=== PATIENT | female | born 1990 | race Caucasian/White ===

== ENCOUNTER → 2017-09-02 | Outpatient (REF) | payer OTHER ==
[2017-09-02 22:27] LABS: INFLUENZA A AMPLIFICATION POSITIVE (NEGATIVE); INFLUENZA B AMPLIFICATION NEGATIVE (NEGATIVE)
== END ==
LOC: M LAB REF 09:21
DX: J11.1 Influenza due to unidentified influenza virus with other respiratory manifestations (principal)
CPT/HCPCS: 87502

== ENCOUNTER 2020-04-28 12:11 | Inpatient (IN) | payer OTHER ==
[2020-04-28] VITALS (38 sets, daily range): BP systolic 83–120; BP diastolic 50–84
[~2020-04-28] VITALS: Ht 167.6 cm; Wt 76.2 kg
[2020-04-28] MEDS ORDERED: PRENTAB9 PO (12:39)
--- NOTE | 2020-04-28 13:07 | HPEPDOC ---
Obstetrical History & Physical General Date of Admission Apr 28, 2020 at 12:53 History of Present Illness 30yo at 39+1wks presenting for c/o gush of clear fluid at 1000 today. She reports continued leaking and small gushes since. She reports spotting VB. She endorses irregular ctx's she rates are 5/10 in pain severity. Denies DFM. Chief Complaint: LOF, term Information Provided By: Patient Age: 30 : 1 Care Care: Good Care Dating Final EDC: May 04, 2020 Final EDC for Daily Update: May 04, 2020 Final EDC by: LMP (c/w 1st trimester U/S at 10wks on [id number]) Antepartum Course Diagnos(e)s Uncomplicated Height (inches): 65 Pre- weight (lbs.): 133 Admission Weight (lbs.): 171 Change in Weight (lbs.): 38 Past Medical History Past Obstetrical History : Past Obstetrical History: [employer]img[employer] History: No pertinent history Past Medical History Medical History Denies Surgical History: Other (Orthopedic surgery with tib/fib repair 2010 with screw removal 2011) Family History Significant Family History: Heart disease, Other (thyroid disease) Social History Marital Status: Family situation: Spouse/partner home Psychosocial History: No pertinent psych hx * Smoker: non-smoker Alcohol: Denies Drugs: denies Abuse Violence Screening Have you been hit/kicked/slapp: No Have you been sexually assault: No Imunizations Tdap status: current ([id number]) Influenza Status: current () Allergies Coded Allergies: amoxicillin (Verified Allergy, Intermediate, 04/28/20) clavulanic acid (Verified Allergy, Intermediate, 04/28/20) Medications Scheduled No.137/Iron/Folic Acd ( Vitamin Tablet) 1 Each Tablet, 1 TAB PO DAILY Physical Examination Physical Examination GENERAL: Alert and oriented times three. ABDOMEN: Gravid and non-tender to touch. FETUS: Is vertex (VTX) by sterile vaginal examination (SVE), fetus is vertex (VTX) by Avni. CARDS: well-perfused RESP: no exaggerated respiratory effort appreciated, no cough EXTREMITIES: No edema. : NEFG, +pooling of clear fluid noted, SVE 2/80/-2 Laboratory Data Urine Culture: No Growth Pertinent Laboratoy Data Blood Type: O+ RBC Antibody Screen: Negative HIV: Negative Hepatitis B: Negative Rapid Plasma Reagin: Nonreactive Rubella: Immune Varicella: Nonreactive Chlamydia/Gonorrhea: Negative Group B Streptococcus: Negative ([id number]) Quad Screen Test: Declined Cystic Fibrosis: Negative Anatomy Ultrasound Ultrasound Date: Dec 18, 2019 Placenta Location: Anterior Normal Anatomy: Yes Placenta Previa: No Vaginal Examination Dilation: 2cm Effacement: 80% Station: -2 Cervical Consistency: Soft Cervical Position: Posterior Presentation: Cephalic presentation Assessment Heart Rate (FHR): 135 Variability: Moderate Accelerations: Positive Decelerations: None Tocometer Contractions: Yes Frequency: irregular Multi-drug resistant Organism: No history of MDRO Assessment/Plan Assessment 30yo at 39+1wks presenting for PROM of clear fluid. SVE 2/80/-2. GBS neg. EFW 3400g. Plan Admit and orient. Lap Runner and consent. Diet: clears as tolerated. Group B Streptococcus (GBS) negative. Labs and intravenous (IV) per unit protocol. Counseled on Pitocin and induction of labor (IOL). Lactated Ringers (LR): at 125 mL/hr. Patient may have epidural if desires Anticipate normal spontaneous delivery (). C-S as appropriate. ALBAN PIEDRA DO Apr 28, 2020 13:07
[2020-04-28 13:39] LABS: HEMATOCRIT 40.4 % (36.0-47.0); HEMOGLOBIN 13.3 g/dl (12.0-15.5); MEAN CORPUSCULAR HEMOGLOBIN 27.7 pg (27.0-33.0); MEAN CORPUSCULAR HGB CONC 32.9 g/dl (32.0-36.5); MEAN CORPUSCULAR VOLUME 84.2 fl (80.0-96.0); PLATELET COUNT, AUTOMATED 238 10^3/uL (150-450); WHITE BLOOD COUNT 11.7 10^3/uL (4.0-10.0)
[2020-04-28] MEDS ORDERED: FENTANYL 2MCG/ML ROPIVACAINE 0.2% IN 0.9% NACL 100ML IVBAG As Ordered ONE (15:55)
[2020-04-28] MEDS ORDERED: NALOXONE INJ 0.4MG/1ML VIAL (J2310 PER 1MG) IV PRN (17:00)
[2020-04-28] MEDS ORDERED: diphenhydrAMINE 50MG/ML VIAL (J1200) IV PRN (17:00)
[2020-04-28] MEDS ORDERED: EPIDURAL COMMENT XX SCH (17:00)
[2020-04-28] MEDS ORDERED: REFRIGERATOR IV KEYS XX PRN (17:00)
[2020-04-28] MEDS ORDERED: ONDANSETRON 4MG/2ML VIAL IV PRN (17:00)
[2020-04-28] MEDS ORDERED: FENTANYL/ROPIVACAINE/NACL BAG 100 ML EPIDURAL SCH (17:00)
[2020-04-28] MEDS ORDERED: EPIDURAL/PCA KEYS XX PRN (17:00)
[2020-04-28] MEDS ORDERED: LACTATED RINGER'S 1000 ML IV PRN (17:00)
[2020-04-28] MEDS ORDERED: ePHEDrine SULFATE 25 MG/5 ML(5MG/ML) SYRINGE IV PRN (17:00)
--- NOTE | 2020-04-28 20:44 | IPNPDOC ---
Obstetrical Progress Note Date of Service Apr 28, 2020 Subjective Patient endorsing nausea and feeling pelvic pressure. Objective Vital Signs Date Time Temp Pulse Resp B/P (MAP) Pulse Ox O2 Delivery O2 Flow Rate FiO2 04/28/20 18:34 58 105/57 (73) 04/28/20 18:14 97.7 16 Assessment Heart Rate (FHR): 125 Variability: Moderate Accelerations: Positive Decelerations: None Heart Rate Tracing: Category I Tocometer Contractions: Yes Frequency: every 1-3 min. Sterile Vaginal Examination Dilation: complete Effacement (%): 100% Station: +2 Cervical Consistency: Soft Cervical Position: Anterior Postion/Presentation: Cephalic presentation Assessment and Plan Status: Reassuring Group B Streptococcus: Negative Anticipate: Vaginal Delivery Additional Comments Patient noted to have bloody show. SVE c/c/+2. FHRT cat I. Patient to start pushing with RN at this time for expectant . ALBAN PIEDRA DO Apr 28, 2020 20:44
--- NOTE | 2020-04-28 22:32 | IPNPDOC ---
Obstetrical Progress Note Date of Service Apr 28, 2020 Objective Vital Signs Date Time Temp Pulse Resp B/P (MAP) Pulse Ox O2 Delivery O2 Flow Rate FiO2 04/28/20 18:34 58 105/57 (73) 04/28/20 18:14 97.7 16 Assessment Heart Rate (FHR): 150 Variability: Increased Accelerations: Positive Decelerations: Early Heart Rate Tracing: Category I Tocometer Contractions: Yes Frequency: every 1-3 min. Sterile Vaginal Examination Dilation: complete Effacement (%): 100% Station: +3 (with pushing) Cervical Consistency: Soft Cervical Position: Anterior Postion/Presentation: Cephalic presentation Assessment and Plan Status: Reassuring Group B Streptococcus: Negative Anticipate: Vaginal Delivery Additional Comments Patient has been pushing for 1.5hours and has made some descent with pushing to +3 station. position noted to be OP on SVE. Patient pushing well with ctx's and making descent with pushing. Patient counseled about potential need for operative delivery but encouraged to continue pushing as she desires at this time. FHRT cat I. Safe to proceed. ALBAN PIEDRA DO Apr 28, 2020 22:32
[2020-04-29] VITALS (14 sets, daily range): BP systolic 93–126; BP diastolic 51–69
[2020-04-29 01:14] LABS: CORD GAS ABE A -6.6; CORD GAS HCO3 A 20.8 MEQ/L; CORD GAS HCO3 V 21.2 MEQ/L; CORD GAS O2 SAT A 70.7 %; CORD GAS O2 SAT V 55.1 %; CORD GAS PCO2 V 47.7 mmHg; CORD GAS PH A 7.254 UNITS; CORD GAS PH V 7.265 UNITS; CORD GAS PO2 A 29.9 mmHg; CORD GAS PO2 V 24.5 mmHg; CORD GAS SBC A 18.5 MEQ/L; CORD GAS SBC V 18.6 MEQ/L; CORD GAS TCO2 A 22.2 MEQ/L; CORD GAS TCO2 V 22.6 MEQ/L
--- NOTE | 2020-04-29 06:30 | DNPDOC ---
[facility] Delivery Note Delivery Note DATE OF DELIVERY: 04/29/2020 PREDELIVERY DIAGNOSIS: 39+2/7 weeks' gestation and labor. POST DELIVERY DIAGNOSIS: Delivered. PROCEDURE: Vacuum-assisted vaginal delivery VIRTUAL CUSTOMER ASSISTANT: Dr. Alban Piedra ANESTHESIA: Epidural, lidocaine 1% without epinephrine for repair ESTIMATED BLOOD LOSS: 250 mL. FINDINGS: 7 pound 7 ounce 3360g male , Score 8/8, nuchal cord times x2 with bandolier cord noted. Terminal meconium appreciated. Infant noted to have small area of skin erosion on caput while patient was pushing. DELIVERY SUMMARY: Patient found to be c/c/+3 and pushing with good maternal effort. Patient had been offered operative vaginal delivery at 2 and 3 hours of pushing but dec lined. After 4 hours of pushing, patient counseled on recommendation for operative vaginal delivery as head was noted to have 2cm area of swelling with skin layer on head from the length of pushing, length of time that patient had been pushing for concern of maternal exhaustion, and significant vaginal edema appreciated. Patient endorsed maternal exhaustion and was amenable to operative vaginal delivery. Chavez catheter removed. position appreciated to be HOA. Kiwi vacuum applied to flexion point with care taken to ensure maternal tissue was not trapped in the vacuum. With contraction, suction applied and over 2 pushes, delivery of head with no pop-offs. Vacuum suction removed and kiwi removed from delivery field. Pres entation was HOA with restitution to LOT with right shoulder anterior position. Anterior shoulder delivered without difficulty followed by body. Nuchal cord x2 and bandolier cord x1 appreciated that were reduced on delivery field. placed on maternal abdomen to be dried and stimulated. Pitocin IV bolus initiated. Ice was placed in the vagina due to significant edema noted. After 5 minutes of delayed cord clamping, 3 vessel cord clamped x2 and cut by FOB. Cord gas sample obtained. Cord blood sample obtained. Inspection of vagina revealed left labia laceration that was made hemostatic using 4-0 vicryl in running, non- locking fashion under local anesthesia as epidural was not effective for repair. Perineum found to be intact. Third stage was spontaneous with intact placenta noted. Fundal massage revealed firm uterine tone and hemostasis. Additional ice was placed into the vagina for significant edema at the end of repair. EBL 250ml. Mother stable upon my leaving the room. Infant taken to NICU for observation per operative delivery SOP. ALBAN PIEDRA DO Apr 29, 2020 01:29
--- NOTE | 2020-04-30 04:19 | IPNPDOC ---
Progress Note Date of Service: Apr 30, 2020 Day#: 1 Progress Note SUBJECT: 30yo s/p VAVD doing well day # 1. She has been ambulat ing, voiding spontaneously without issue and tolerating regular diet. Breast feeding well. Reports lochia is decreasing. Reports pain controlled. OBJECTIVE: VITAL SIGNS: Within normal limits, afebrile. Alert and oriented times three. RESP: no exaggerated respiratory effort appreciated, no cough CARDS: well-perfused Abdomen: Fundus firm at U-2. Soft, NTTP. : deferred as patient during evaluation ASSESSMENT: 23yo s/p VAVD doing well day # 1. Normotensive, afebrile, hemodynamically stable with no evidence of infection. PLAN: 1. Discharge to home tomorrow 2. Tylenol and Motrin for pain PRN. 3. Encourage breast feeding and ambulation. 4. Encourage regular diet and PO hydration as tolerated 5. Monitor lochia and vitals q4h and PRN VS, I&O, 24H, Fishbone Vital Signs/I&O Vital Signs Date Time Temp Pulse Resp B/P (MAP) Pulse Ox O2 Delivery O2 Flow Rate FiO2 04/29/20 18:00 98.9 55 18 110/60 (77) 04/29/20 06:04 97 Room Air ALBAN PIEDRA DO Apr 30, 2020 04:18
[2020-04-30 05:33] VITALS: BP 110/64
[2020-04-30 18:00] VITALS: BP_SYST 104; BP_SYST 111; BP_DIAS 61; BP_DIAS 65
[2020-05-01 05:52] VITALS: BP 101/69
[2020-05-01] MEDS ORDERED: IBUP80TA PO (06:38)
[2020-05-01] MEDS ORDERED: DIBU10OI TOP (06:38)
[2020-05-01] MEDS ORDERED: DOCU100C16 PO (06:38)
--- NOTE | 2020-05-01 11:59 | DSES ---
DATE OF ADMISSION: 04/28/2020 DATE OF DISCHARGE: This lady is a 30-year-old 1 now para 1 admitted at 39 and two weeks of gestation, active labor; had spontaneous vaginal delivery with epidural of a male , 7 pounds 7 ounces (3360 grams), Apgars of 8 and 8 at one and five minutes respectively. Arterial pH was 7.25, base excess -6.6, venous pH 7.26, base excess -6.0. The patient had a left labial laceration which was repaired. On her second day, we discussed phlebitis, cystitis, mastitis, endometritis, and cellulitis, diet, exercise, pain management, perineal, breast, and wound care. The rest of the examination was unremarkable. Normocephalic and atraumatic. Neck: Full range of motion. Pupils equal and reactive to light. Distal pulses symmetrical. No evidence of DVT, PE or superficial phlebitis. Chest was clear bilaterally at the bases; no wheezes or rhonchi. No CVA tenderness. Abdomen soft. Four quadrant bowel sounds are noted. Uterus two below; lochia is moderate. Perineum was healing. No rashes, lesions, pruritus. No arthralgias, myalgias. No complaint of joint pain. No complaint of cough, wheeze, shortness of breath or dyspnea on exertion. No nausea, vomiting, diarrhea or constipation. No urgency or frequency. On discharge, the patient's hemoglobin was 13.3, hematocrit 40.4 and platelets are 238. Her vital signs on discharge: Her blood pressure 101/69, respirations 18, pulse is 58and temperature is 98.9. Medications were dispensed at [place]. She will have a six-week checkup at [facility]. All questions were answered; twenty-minute discussion. The patient was discharged improved. KIRT
== END 2020-05-01 11:50 | disposition home or self-care (01) | DRG 807 ==
LOC: M LDO 12:11 → M LDI 12:53 → M OBS 04-29 05:11
PROC: 10D07Z6 Extraction of Products of Conception, Vacuum, Via Natural or Artificial Opening (ICD-10-PCS; principal; 2020-04-29)
PROC: 0HQ9XZZ Repair Perineum Skin, External Approach (ICD-10-PCS; 2020-04-29)
DX: O42.02 Full-term premature rupture of membranes, onset of labor within 24 hours of rupture (principal); Z37.0 Single live birth; Z3A.39 39 weeks gestation of pregnancy; O69.81X0 Labor and delivery complicated by cord around neck, without compression, not applicable or unspecified; O69.82X0 Labor and delivery complicated by other cord entanglement, without compression, not applicable or unspecified; O77.0 Labor and delivery complicated by meconium in amniotic fluid; O75.81 Maternal exhaustion complicating labor and delivery; O70.0 First degree perineal laceration during delivery

== ENCOUNTER 2022-03-03 02:20 | Emergency (ER) | payer OTHER ==
[~2022-03-03] VITALS: Ht 167.6 cm; Wt 64.6 kg
[~2022-03-03 02:20] MED LIST: DIBU28OI2 TOP; DOCU100C16 PO; IBUP80TA PO; PRENTAB9 PO
[2022-03-03 02:21] VITALS: BP 117/78
[2022-03-03 03:11] LABS: BASO # 0.1 10^3/uL (0.0-0.2); BASO % 0.6 % (0.0-1.0); EOS # 0.2 10^3/uL (0.0-0.5); EOS % 1.3 % (0.0-3.0); HEMOGLOBIN 12.1 g/dl (12.0-15.5); LYMPH # 3.1 10^3/uL (1.5-5.0); LYMPH % 28.2 % (24.0-44.0); MEAN CORPUSCULAR HEMOGLOBIN 26.7 pg (27.0-33.0); MEAN CORPUSCULAR HGB CONC 32.7 g/dl (32.0-36.5); MEAN CORPUSCULAR VOLUME 81.7 fl (80.0-96.0); MONO # 0.7 10^3/uL (0.0-0.8); MONO % 6.7 % (2.0-8.0); NEUTROPHILS % 62.7 % (36.0-66.0); PLATELET COUNT, AUTOMATED 247 10^3/uL (150-450); RED BLOOD COUNT 4.53 10^6/uL (4.00-5.40); WHITE BLOOD COUNT 11.1 10^3/uL (4.0-10.0)
[2022-03-03 03:34] LABS: HCG, SERUM QUALITATIVE POSITIVE (NEGATIVE)
== END 2022-03-03 06:00 | disposition left against medical advice (07) ==
LOC: M ED 02:20
DX: Z53.29 Procedure and treatment not carried out because of patient's decision for other reasons (principal)

== ENCOUNTER 2022-09-09 20:43 | Inpatient (IN) | payer OTHER ==
[2022-09-09] VITALS (10 sets, daily range): BP systolic 96–123; BP diastolic 58–71
[~2022-09-09] VITALS: Ht 167.6 cm; Wt 77.4 kg
[2022-09-09] MEDS ORDERED: OXYTOCIN 30UNITS IN 0.9% NaCl 500ML IV BAG As Ordered ONE (20:59)
[2022-09-09] MEDS ORDERED: LIDOCAINE 1% MDV 20ML VIAL As Ordered ONE (21:14)
[2022-09-09 21:15] LABS: HEMATOCRIT 39.6 % (36.0-47.0); MEAN CORPUSCULAR HEMOGLOBIN 27.1 pg (27.0-33.0); MEAN CORPUSCULAR HGB CONC 32.8 g/dl (32.0-36.5); MEAN CORPUSCULAR VOLUME 82.7 fl (80.0-96.0); PLATELET COUNT, AUTOMATED 259 10^3/uL (150-450); RED BLOOD COUNT 4.79 10^6/uL (4.00-5.40); WHITE BLOOD COUNT 10.2 10^3/uL (4.0-10.0)
[2022-09-09] MEDS ORDERED: LIDOCAINE 1% MDV 20ML VIAL SC ONE (21:25)
[2022-09-09 21:33] LABS: CORD GAS ABE V -5.2; CORD GAS HCO3 V 20.3 MEQ/L; CORD GAS O2 SAT V 79.8 %; CORD GAS PCO2 V 40.1 mmHg; CORD GAS PH V 7.323 UNITS; CORD GAS PO2 V 36.3 mmHg; CORD GAS SBC V 19.8 MEQ/L; CORD GAS TCO2 V 21.6 MEQ/L
[2022-09-09 21:34] LABS: CORD GAS ABE A -8.4; CORD GAS HCO3 A 20.9 MEQ/L; CORD GAS O2 SAT A 70.6 %; CORD GAS PCO2 A 57.8 mmHg; CORD GAS PH A 7.177 UNITS; CORD GAS PO2 A 36.2 mmHg; CORD GAS SBC A 17.2 MEQ/L; CORD GAS TCO2 A 22.7 MEQ/L
[2022-09-09] MEDS ORDERED: OXYTOCIN INJ 10UNITS/ML 1ML VIAL IV PRN (21:35)
[2022-09-09] MEDS ORDERED: CARBOPROST TROMETHAMINE 250 MCG/ML AMP IM PRN (21:35)
[2022-09-09] MEDS ORDERED: TRANEXAMIC ACID INJection 1,000 MG in NS 100 ML IV PRN (21:35)
[2022-09-09] MEDS ORDERED: OXYTOCIN DRIP 30 UNITS in IV 1 EA IV PRN ×6 (21:35)
[2022-09-09] MEDS ORDERED: LIDOCAINE 1% MDV 20ML VIAL INFIL PRN (21:35)
[2022-09-09] MEDS ORDERED: ACETAMINOPHEN 500 MG TAB PO PRN (21:35)
[2022-09-09] MEDS ORDERED: RHOGAM 300MCG (1500IU) INJ IM SCH (21:35)
[2022-09-09] MEDS ORDERED: METHYLERGONOVINE MALEATE 0.2MG/ML 1ML VIAL IM PRN (21:35)
[2022-09-09] MEDS ORDERED: MOM 30ML SUSPENSION UDC PO PRN (21:35)
[2022-09-09] MEDS ORDERED: OXYTOCIN INJ 10UNITS/ML 1ML VIAL IM PRN (21:35)
[2022-09-09] MEDS ORDERED: ANUSOL HC CREAM 30GM TOP PRN (21:35)
[2022-09-09] MEDS ORDERED: IBUPROFEN 800 MG TAB PO PRN (21:35)
[2022-09-09] MEDS ORDERED: METHYLERGONOVINE MALEATE 0.2 MG TAB PO PRN (21:35)
[2022-09-09] MEDS ORDERED: OXYTOCIN DRIP 30 UNITS in IV 1 EA IV SCH ×4 (21:35)
[2022-09-09] MEDS: DOCUSATE SODIUM 100MG CAPSULE PO SCH (22:17)
[2022-09-09] MEDS: IBUPROFEN 800 MG TAB PO SCH (22:18)
[2022-09-09] MEDS ORDERED: PRENTAB9 PO (22:57)
[2022-09-09] MEDS ORDERED: HOME MED LIST COMPLETE! XX SCH (23:05)
[2022-09-09] MEDS: ACETAMINOPHEN 500 MG TAB PO SCH (23:40)
[2022-09-10] MEDS: ACETAMINOPHEN 500 MG TAB PO SCH ×3 (05:51→17:29)
[2022-09-10 06:34] VITALS: BP 97/56
[2022-09-10] MEDS: IBUPROFEN 800 MG TAB PO SCH ×3 (06:43→21:29)
[2022-09-10] MEDS: DIBUCAINE 1% OINTMENT 30GM TOP PRN ×2 (06:49→17:37)
[2022-09-10] MEDS: PRENATAL VITAMINS CHEWABLE TABLET PO SCH (08:49)
[2022-09-10] MEDS: DOCUSATE SODIUM 100MG CAPSULE PO SCH ×2 (08:53→21:28)
[2022-09-10 18:00] VITALS: BP 95/61
[2022-09-11] MEDS: ACETAMINOPHEN 500 MG TAB PO SCH ×2 (00:06→07:58)
[2022-09-11] MEDS: IBUPROFEN 800 MG TAB PO SCH (05:19)
[2022-09-11 06:00] VITALS: BP 92/61
[2022-09-11] MEDS: DOCUSATE SODIUM 100MG CAPSULE PO SCH (07:58)
[2022-09-11] MEDS: PRENATAL VITAMINS CHEWABLE TABLET PO SCH (08:53)
[2022-09-11] MEDS ORDERED: MEASLES,MUMPS,RUBELLA VACCINE INJ (MMR-II) SC.IMMUN ONE (09:00)
== END 2022-09-11 12:25 | disposition home or self-care (01) | DRG 807 ==
LOC: M LDO 20:43 → M LDI 20:52 → M OBS 23:54
PROVIDERS: ADMIT Obstetrics & Gynecology; ATTEND Obstetrics & Gynecology
PROC: 10E0XZZ Delivery of Products of Conception, External Approach (ICD-10-PCS; principal; 2022-09-09)
DX: O48.0 Post-term pregnancy (principal); Z37.0 Single live birth; Z3A.40 40 weeks gestation of pregnancy; O62.3 Precipitate labor; O69.81X0 Labor and delivery complicated by cord around neck, without compression, not applicable or unspecified

== ENCOUNTER → 2024-06-13 | Outpatient (REF) | payer OTHER ==
[2024-06-13 20:57] LABS: APPEARANCE, URINE CLEAR (CLEAR); BACTERIA, URINE AUTO NEGATIVE (NEGATIVE); BILIRUBIN, URINE AUTO NEGATIVE (NEGATIVE); BLOOD, URINE BLOOD 2+ (NEGATIVE); COLOR, URINE YELLOW (YELLOW); GLUCOSE, URINE (UA) AUTO NEGATIVE (NEGATIVE); KETONE, URINE AUTO NEGATIVE (NEGATIVE); LEUKOCYTE ESTERASE, URINE AUTO NEGATIVE (NEGATIVE); MUCUS, URINE SMALL (NEGATIVE); NITRITE, URINE AUTO NEGATIVE (NEGATIVE); PROTEIN, URINE AUTO NEGATIVE (NEGATIVE); RBC, URINE AUTO 9 /HPF (0-3); SPECIFIC GRAVITY URINE AUTO 1.017 (1.002-1.035); SQUAMOUS EPITHELIAL CELL UR AU 1 /HPF (0-6); UROBILINOGEN, URINE AUTO 0.2 mg/dL (0.0-2.0); WBC, URINE AUTO 1 /HPF (0-3)
== END ==
LOC: M LAB REF 20:38
PROVIDERS: ATTEND Physician Assistant Medical
DX: B34.9 Viral infection, unspecified (principal)

== ENCOUNTER → 2025-05-23 | Outpatient (CLI) | payer OTHER ==
[2025-05-23 15:29] LABS: PLATELET COUNT, AUTOMATED 278 10^3/uL (150-450)
[2025-05-23 16:08] LABS: HIV 1&2 SCREEN NEGATIVE (NEGATIVE)
[2025-05-23 16:16] LABS: HEPATITIS C VIRUS ABY INDEX < 0.02 INDEX (<0.8)
[2025-05-23 16:37] LABS: Trichomonas vaginalis (AMP) NOT DETECTED (NEGATIVE)
[2025-05-23 17:01] LABS: GC DNA AMPLIFICATION NEGATIVE (NEGATIVE)
== END ==
LOC: M PLALAB 13:39
PROVIDERS: ATTEND Nurse Practitioner Family
DX: Z34.80 Encounter for supervision of other normal pregnancy, unspecified trimester (principal)